=== PATIENT | male | born 1995 | race American Indian/Alaskan Native ===

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

== ENCOUNTER 2017-04-02 17:11 | Emergency (ER) | payer OTHER, SELFPAY ==
[2017-04-02 18:08] LABS: Anion Gap 17 mmol/L; BUN/Creatinine Ratio 13.75; Blood Urea Nitrogen 11 mg/dL (9-20); Calcium 9.2 mg/dL (8.4-10.2); Carbon Dioxide 24 mmol/L (22-30); Chloride 107.2 mmol/L (98-107); Glucose 100 mg/dL (75-100); Potassium 3.8 mmol/L (3.6-5.0); Sodium 144 mmol/L (137-145)
[2017-04-02 18:25] LABS: Urine Drugs of Abuse Note Disclamer
[2017-04-02 18:38] LABS: Basophils % (Auto) 0.4 % (0.0-1.8); Eosinophils % (Auto) 1.9 % (0.0-4.3); Hematocrit 45.9 % (35.5-45.6); Hemoglobin 14.9 gm/dl (11.8-15.2); Mean Corpuscular HGB Conc 33 % (32-34); Mean Corpuscular Hemoglobin 29 pg (28-32); Mean Corpuscular Volume 88 fl (84-94); Platelet Count 212 K/mm3 (140-440); Red Blood Count 5.23 M/mm3 (3.65-5.03); White Blood Count 6.4 K/mm3 (4.5-11.0)
[2017-04-02 18:44] LABS: Bilirubin,Urine NEG (Negative); Blood,Urine NEG (Negative); Ketones,Urine 20 mg/dL (Negative); Leukocyte Esterase,Urine NEG (Negative); Mucus,Urine FEW /HPF; Nitrite,Urine NEG (Negative); Protein,Urine <15 mg/dL mg/dL (Negative); Urobilinogen,Urine < 2.0 mg/dL (<2.0)
[2017-04-02] MEDS ORDERED: HALDOL ONE (21:17)
[2017-04-02] MEDS ORDERED: HALDOL IM ONE (21:21)
--- NOTE | 2017-04-02 21:44 | Emergency Department Report ---
HPI - General Chief Complaint: Psych Time Seen by Provider: 04/02/17 20:01 - HPI HPI: This is a 21-year-old Afro-Vincentian male with a past nuchal history of autism, ADHD who presents emergency Department with his legal guardian with the complaint that the patient is having some anger issues, has destroyed her property and is uncontrollable. She says that he has been back at her house for about 2 days now and he has destroyed every television in the house, multiple other pieces of furniture and just prior to presentation he came after her with TV tables. She says that he used to be controlled on Risperdal and his Divalprox but says that when he became 20 that they took away his Medicaid and unable to continue with the medications. She recently got him back on these medications through the [facility] but says that do not appear to be helping. She says that this is the fourth visit for similar behavioral disturbances. The patient is nonverbal at baseline. ED Past Medical Hx - Past Medical History Previous Medical History?: Yes Hx Psychiatric Treatment: Yes (anger outbursts) Additional medical history: Autism/ non verbal. Prematurity - Surgical History Past Surgical History?: Yes Additional Surgical History: multiple surgeries at - Social History Smoking Status: Never Smoker Substance Use Type: Prescribed - Medications Home Medications: Home Medications Medication Instructions Recorded Confirmed Last Taken Type Multivitamin [Multi-Vitamin Daily] 1 tab PO DAILY 12/30/13 12/30/13 12/30/13 History risperiDONE [RisperDAL] 2 mg PO DAILY 12/30/13 12/30/13 12/30/13 History Amoxicillin/K Clav Tab [Augmentin 1 tab PO BID #20 tablet 07/26/14 Unknown Rx 875MG TAB] Ibuprofen [Motrin 600 MG tab] 800 mg PO Q8H PRN #20 tablet 07/26/14 Unknown Rx Loratadine [Claritin] 10 mg PO DAILY #30 tablet 07/26/14 Unknown Rx Prednisone 20 mg PO DAILY #5 tablet 07/26/14 Unknown Rx diphenhydrAMINE [Benadryl CAP] 50 mg PO Q8HR PRN #30 capsule 11/10/16 Unknown Rx ED Review of Systems ROS: Stated complaint: MENTAL EVAL Other details as noted in HPI Comment: Unobtainable due to pts medical conditions Physical Exam - Physical Exam Vital Signs: Vital Signs 04/02/17 17:23 Temperature 98.8 F Pulse Rate 81 Respiratory 20 Rate Blood Pressure 128/74 O2 Sat by Pulse 94 Oximetry Physical Exam: GENERAL: The patient is well-developed well-nourished. HEENT: Normocephalic. Atraumatic. Extraocular motions are intact. Patient has moist mucous membranes. Pupils equal reactive to light bilaterally. NECK: Supple. Trachea is midline. CHEST/LUNGS: Clear to auscultation. There is no respiratory distress noted. HEART/CARDIOVASCULAR: Regular. There is no tachycardia. There is no gallop rub or murmur. ABDOMEN: Abdomen is soft, nontender. Patient has normal bowel sounds. There is no abdominal distention. SKIN: Skin is warm and dry. NEURO: Patient is awake but nonverbal. Not following any commands but this may be baseline. MUSCULOSKELETAL: There is no tenderness or deformity. There is no limitation range of motion. There is no evidence of acute injury. ED Course Vital Signs 04/02/17 17:23 Temperature 98.8 F Pulse Rate 81 Respiratory 20 Rate Blood Pressure 128/74 O2 Sat by Pulse 94 Oximetry ED Medical Decision Making - Lab Data Result diagrams: 04/02/17 17:37 04/02/17 17:37 - Medical Decision Making This is a 21-year-old male with a history of autism and some history of behavioral disturbances and what mom says is a history of ADHD who presents to the complaint of anger issues and behavioral disturbance and aggressive behavior. Mom/guardian says that the patient has been destroying everything in the house including every single television. This evening he destroyed a television and then started coming after her with TV cables. She felt threatened and called the police. She says that his medications were changed about one month ago and that when he is on his medications and stabilize that he is much better and she is able to redirect him or give him to take care of his activities of daily living. However at this point the guardian says she is fed up and will not bring him home in this state. The [facility] crisis team came out to evaluate the patient and his mother. She still is pushing for psychiatric placement and does not agree with their idea for aggressive in-home support. After my evaluation of the patient he did have some outbursts in the emergency department and became very agitated and tried to break down some of the doors in the psychiatric area. The patient was given some Haldol as he is usually on Risperdal and I thought this might bring him back to baseline. It seemed to work for a little while but that he became quite agitated again and required some Ativan. This appeared to help him relax more. The patient will be made a 1013 as he is unable to take care of his activities of daily living but more so because he appears to be a threat towards his guardian. The patient has a history of autism and some type of developmental delay and may always have trouble with ADLs. We will continue to evaluate this patient was in the emergency department and we will start with psychiatric evaluation and if necessary placement but there may be some further evaluation needed by the [facility] crisis team and/or social services director for future placement of this patient. Critical Care Time: No Critical care attestation.: If time is entered above; I have spent that time in minutes in the direct care of this critically ill patient, excluding procedure time. ED Disposition Clinical Impression: Behavioral disorder, Autism, Destructive behavior Disposition: [id number]/TX-[id number] PSY HOSP/PSY UNIT Is pt being admited?: No Condition: Stable Referrals: PRIMARY CARE [Primary Care Provider] - 3-5 Days Time of Disposition: 02:11
[2017-04-03] MEDS ORDERED: ATIVAN ONE
[2017-04-03] MEDS ORDERED: BENADRYL ONE (00:01)
[2017-04-03] MEDS ORDERED: ATIVAN IM ONE ×2 (00:03→17:08)
--- NOTE | 2017-04-03 16:33 | Consultation ---
History of Present Illness - Reason for Consult Consult date: 04/03/17 Reason for consult: psychiatric evaluation - Chief Complaint Chief complaint: "uh" This is a 21-year-old Afro-[place]ian male with a past medical history of autism and ADHD. He was seen in the ER for psychiatric evaluation. His adoptive mother/ grandmother provided collateral. She has attempted to take him to [facility] twice during the last week. Each time, he had a tantrum. When he returned to the home, he broke his cable box. This is the 8th one he has broken. His mother did not let him use her tv and he threw the cable box through it. She is also concerned about his recent behavior of appearing as thought he is interacting with something She says that he used to be controlled on Risperdal and his Divalprox but says that when he became 20 that they took away his Medicaid and unable to continue with the medications. She recently got him back on these medications through the [facility] but does not think they are helping. She remembered he responded better to Abilify instead of Risperdal. She says that this is the fourth visit for similar behavioral disturbances. The patient is nonverbal at baseline. He eats well and chooses food himself. He points to communicate. Medications and Allergies Allergies Allergy/AdvReac Type Severity Reaction Status Date / Time No Known Allergies Allergy Verified 11/06/16 18:33 Home Medications Medication Instructions Recorded Confirmed Last Taken Type Multivitamin [Multi-Vitamin Daily] 1 tab PO DAILY 12/30/13 12/30/13 12/30/13 History risperiDONE [RisperDAL] 2 mg PO DAILY 12/30/13 12/30/13 12/30/13 History Amoxicillin/K Clav Tab [Augmentin 1 tab PO BID #20 tablet 07/26/14 Unknown Rx 875MG TAB] Ibuprofen [Motrin 600 MG tab] 800 mg PO Q8H PRN #20 tablet 07/26/14 Unknown Rx Loratadine [Claritin] 10 mg PO DAILY #30 tablet 07/26/14 Unknown Rx Prednisone 20 mg PO DAILY #5 tablet 07/26/14 Unknown Rx diphenhydrAMINE [Benadryl CAP] 50 mg PO Q8HR PRN #30 capsule 11/10/16 Unknown Rx Past psychiatric history - Past Medical History Past Medical History: other (premature, less than 2lbs at according to his grandmother) Past Surgical History: Other (multiple surgeries as an infant. ) - past Psychiatric treatment and history Psych: Bipolar psychiatric treatment history: developmental delay - Social History Social history: lives with family (he has lived with his grandmother all of his life. His bioparents were unable to care for him.) Mental Status Exam - Vital signs Last Vital Signs Temp 98 F 04/02/17 20:30 Pulse 88 04/02/17 20:30 Resp 16 04/02/17 20:30 BP 127/82 04/02/17 20:30 Pulse Ox 100 04/02/17 20:30 - Exam Narrative exam: blood observed on his fingers. His grandmother reports his hand was closed in the door last night, on arrival to the ER. Appearance: sitting up in bed quietly. Speech: Nonverbal Minimal eye contact Unable to assess mood, affect, perception, thought process or content Orientation: person Results Result Diagrams: 04/02/17 17:37 04/02/17 17:37 Abnormal lab results 04/02/17 04/02/17 Range/Units 17:37 17:37 RBC 5.23 H (3.65-5.03) M/mm3 Hct 45.9 H (35.5-45.6) % [place] % (Auto) 11.7 H (0.0-7.3) % Chloride 107.2 H (98-107) mmol/L All other labs normal. Assessment and Plan Assessment and plan: Impression: Developmental delay Recent outbursts occurred following 2 trials at [facility], a significant change in routine. His guardian attributes some of his behavior to this change. He was doing well with behavior for the first month following the reinitiation of his medications. His guardian remembers abilify worked better than risperdal. Mood affective d/o unspecified possible psychotic symptoms Recommendations: Discussed with ER physician to order VPA level and add LFTs to labs. Last dose was 2 days ago. Depakote ER 500mg ordered for hs for mood stabilization Risperdal not ordered. Abilify 10mg daily ordered for mood/aggression Guardian in agreement of medication management
[2017-04-03] MEDS ORDERED: HALDOL IM ONE (17:08)
[2017-04-03] MEDS: ABILIFY PO SCH (21:52)
[2017-04-03 23:50] LABS: Alanine Aminotransferase 28 units/L (7-56); Albumin 4.1 g/dL (3.9-5); Albumin/Globulin Ratio 1.3 %; Alkaline Phosphatase 70 units/L (35-129); Total Protein 7.3 g/dL (6.3-8.2)
[2017-04-03 23:55] LABS: Bilirubin,Direct < 0.2 mg/dL (0-0.2); Bilirubin,Indirect 0.3 mg/dL
--- NOTE | 2017-04-04 11:43 | Progress Note ---
Subjective - Reason for Consult Consult date: 04/04/17 Reason for consult: mood lability Mental Status Exam - Vital signs Last Vital Signs Temp 98.0 F 04/03/17 22:00 Pulse 90 04/03/17 22:00 Resp 18 04/03/17 22:00 BP 126/63 04/03/17 22:00 Pulse Ox 98 04/03/17 22:00 Assessment and Plan On clinical examination, patient remains nonverbal and mute General Appearance: casually dressed, no acute distress Sensorium/Consciousness: alert and responding to external stimuli; clear Orientation: Unable to assess Eye Contact: limited Attitude / Behavior: Uncooperative Psychomotor & Musculoskeletal Activity: Increased PMA Mood: Unable to report Affect: Labile Speech / Language: Nonverbal Thought Processes: Unable to assess Thought Content: Unable to assess Perception: Appears to respond to mental stimuli Insight: Nonexistent Judgement: Impulsive Capacity for ADLs: Appears to be able to complete ADLs independently Plan: Continue Abilify and Depakote Await for placement at an appropriate facility that would be able to manage his developmental disorder
[2017-04-04] MEDS ORDERED: IMODIUM PO ONE (15:47)
[2017-04-04] MEDS: ABILIFY PO SCH (23:28)
--- NOTE | 2017-04-05 13:15 | Progress Note ---
Subjective - Reason for Consult Reason for consult: developmental delay and aggression Mental Status Exam - Vital signs Last Vital Signs Temp 98.8 F 04/05/17 08:35 Pulse 83 04/05/17 08:35 Resp 16 04/05/17 08:35 BP 124/83 04/05/17 08:35 Pulse Ox 100 04/05/17 08:35 Assessment and Plan On clinical examination, patient remains nonverbal and mute. Per clinical staff report, patient has not been agitated or aggressive in the ER. No further information is available regarding his placement. General Appearance: casually dressed, no acute distress Sensorium/Consciousness: alert and responding to external stimuli; clear Orientation: Unable to assess Eye Contact: limited Attitude / Behavior: Uncooperative Psychomotor & Musculoskeletal Activity: Increased PMA Mood: Unable to report Affect: Labile Speech / Language: Nonverbal Thought Processes: Unable to assess Thought Content: Unable to assess Perception: Appears to respond to mental stimuli Insight: Nonexistent Judgement: Impulsive Capacity for ADLs: Appears to be able to complete ADLs independently Plan: Continue Abilify and Depakote Await for placement at an appropriate facility that would be able to manage his developmental disorder
[2017-04-05] MEDS: ABILIFY PO SCH (22:10)
[2017-04-06 09:24] VITALS: BP 114/75
--- NOTE | 2017-04-06 12:00 | Emergency Department Report ---
Blank Doc - Documentation Documentation: Patient has been reassessed by psychiatry. 1013 has been rescinded by psychiatry. Patient is to be discharged home per psychiatric recommendation to follow up with his outpatient psychiatrist.
--- NOTE | 2017-04-06 13:48 | Progress Note ---
Subjective - Reason for Consult Reason for consult: evaluate to rescind 1013 Mental Status Exam - Vital signs Last Vital Signs Temp 98.9 F 04/05/17 22:00 Pulse 65 04/06/17 09:22 Resp 18 04/06/17 09:22 BP 114/75 04/06/17 09:22 Pulse Ox 96 04/05/17 22:00 Assessment and Plan On clinical examination, patient remains nonverbal and mute. Per clinical staff report, patient has not been agitated or aggressive in the ER. Today I spoke with the patient's mother was at bedside. Patient has been off his medications since June. Since being back on his Abilify and Depakote while in the hospital, patient has had a more stable mood and has not displayed any aggressive and agitated behaviors. At the current time patient is no longer an imminent risk of harm to self or others. Although he is unable to take care of his ADLs, this is related to a neuro developmental and even irreversible process. Consequently, he does not meet criteria for continued involuntary psychiatric hospitalization as the neurodevelopmental aspect of his presentation is something that is irreversible, unlike a mood disorder, which is being treated by the Abilify and Depakote. General Appearance: casually dressed, no acute distress Sensorium/Consciousness: alert and responding to external stimuli; clear Orientation: Unable to assess Eye Contact: limited Attitude / Behavior: Uncooperative Psychomotor & Musculoskeletal Activity: Increased PMA Mood: Unable to report Affect: Labile Speech / Language: Nonverbal Thought Processes: Unable to assess Thought Content: Unable to assess Perception: Appears to respond to mental stimuli Insight: Nonexistent Judgement: Impulsive Capacity for ADLs: Appears to be able to complete ADLs independently Plan: Rescind 1013 Continue Abilify and Depakote as scheduled upon discharge Patient will follow up with outpatient psychiatrist
== END 2017-04-06 12:22 ==
LOC: EEVIPCON 17:11 → ED 17:11
DX: F91.8 Other conduct disorders (principal); F84.0 Autistic disorder; F90.9 Attention-deficit hyperactivity disorder, unspecified type
CPT/HCPCS: 36415; 80048; 80074; 80164; 80307; 81001; 85025; 96372; 99284; G0480; J1630; J2060; 80320; J1200

== ENCOUNTER 2018-06-19 22:01 | Emergency (ER) | payer SELFPAY ==
[2018-06-19 22:34] VITALS: BP 127/76
[2018-06-19 22:58] LABS: Basophils % (Auto) 0.5 % (0.0-1.8); Eosinophils # (Auto) 0.1 K/mm3 (0.0-0.4); Eosinophils % (Auto) 2.6 % (0.0-4.3); Hematocrit 47.3 % (35.5-45.6); Hemoglobin 16.3 gm/dl (11.8-15.2); Lymphocytes # (Auto) 2.6 K/mm3 (1.2-5.4); Lymphocytes % (Auto) 46.1 % (13.4-35.0); Mean Corpuscular HGB Conc 34 % (32-34); Mean Corpuscular Hemoglobin 31 pg (28-32); Mean Corpuscular Volume 91 fl (84-94); Monocytes # (Auto) 0.6 K/mm3 (0.0-0.8); Platelet Count 161 K/mm3 (140-440); Red Blood Count 5.22 M/mm3 (3.65-5.03); Red Cell Distribution Width 13.7 % (13.2-15.2)
[2018-06-19 23:54] LABS: Bilirubin,Urine NEG (Negative); Blood,Urine NEG (Negative); Color,Urine Yellow (Yellow); Mucus,Urine FEW /HPF; Protein,Urine <15 mg/dL mg/dL (Negative)
[2018-06-19 23:58] LABS: Amphetamine Screen,Urine PRESUMPTIVE NEGATIVE; Benzodiazepines Screen,Urine PRESUMPTIVE NEGATIVE; Cannabinoid Screen,Urine PRESUMPTIVE NEGATIVE; Cocaine Screen,Urine PRESUMPTIVE NEGATIVE; Methadone Screen,Urine PRESUMPTIVE NEGATIVE; Opiate Screen,Urine PRESUMPTIVE NEGATIVE
--- NOTE | 2018-06-20 00:01 | Emergency Department Report ---
ED Psych HPI - General Chief Complaint: Psych Stated Complaint: MH/EVAL Time Seen by Provider: 06/19/18 23:48 Source: patient Mode of arrival: Ambulatory - History of Present Illness Initial Comments: Patient is 22 years old male with history of autism and ADHD. Patient brought to the ER by police department after his adopted mother called and he stated that he was watching TV and all of a sudden he became very aggressive and he broke a TV and damage his room. Patient has similar episodes before for which he was evaluated here in the ER. During examination patient is calm and mute. Mother stated that his been taking Depakote and Abilify. Complaint: altered mental status - Related Data Home Medications Medication Instructions Recorded Confirmed Last Taken ARIPiprazole [Abilify TAB] 20 mg PO HS 06/19/18 06/19/18 13:00 Divalproex ER [Depakote ER] 500 mg PO BID 06/19/18 06/19/18 06/19/18 13:00 Allergies Allergy/AdvReac Type Severity Reaction Status Date / Time No Known Allergies Allergy Verified 11/06/16 18:33 ED Review of Systems ROS: Stated complaint: MH/EVAL Other details as noted in HPI Comment: Unobtainable due to pts medical conditions ED Past Medical Hx - Past Medical History Previous Medical History?: Yes Hx Psychiatric Treatment: Yes (anger outbursts) Additional medical history: Autism/ non verbal. Prematurity - Surgical History Past Surgical History?: Yes Additional Surgical History: multiple surgeries at - Social History Smoking Status: Never Smoker Substance Use Type: Prescribed - Medications Home Medications: Home Medications Medication Instructions Recorded Confirmed Last Taken Type ARIPiprazole [Abilify TAB] 20 mg PO HS 06/19/18 06/19/18 13:00 History Divalproex ER [Depakote ER] 500 mg PO BID 06/19/18 06/19/18 06/19/18 13:00 History ED Physical Exam - General Limitations: Language Barrier General appearance: alert, in no apparent distress, anxious - Head Head exam: Present: atraumatic, normocephalic, normal inspection - ENT ENT exam: Present: normal exam, normal orophraynx - Neck Neck exam: Present: normal inspection, full ROM. Absent: tenderness, meningismus - Respiratory Respiratory exam: Present: normal lung sounds bilaterally - Cardiovascular Cardiovascular Exam: Present: regular rate, normal rhythm, normal heart sounds - GI/Abdominal GI/Abdominal exam: Present: soft, normal bowel sounds. Absent: distended, tenderness, guarding, rebound, rigid, organomegaly, mass, bruit, pulsatile mass - Extremities Exam Extremities exam: Present: normal inspection, full ROM, normal capillary refill. Absent: pedal edema, calf tenderness - Back Exam Back exam: Present: normal inspection, full ROM - Neurological Exam Neurological exam: Present: alert, oriented X3, CN II-XII intact, normal gait, reflexes normal - Skin Skin exam: Present: warm, intact, normal color ED Course Vital Signs 06/19/18 22:25 Temperature 99 F Pulse Rate 69 Respiratory 14 Rate Blood Pressure 127/76 Blood Pressure 127/76 [Left] O2 Sat by Pulse 98 Oximetry ED Medical Decision Making - Lab Data Result diagrams: 06/19/18 22:49 06/19/18 22:49 Critical care attestation.: If time is entered above; I have spent that time in minutes in the direct care of this critically ill patient, excluding procedure time. ED Disposition Clinical Impression: Aggressive behavior, Autism Disposition: Z-07 ELOPED Is pt being admited?: No Condition: Stable Referrals: PRIMARY CARE, [Primary Care Provider] - 3-5 Days
[2018-06-20 00:49] LABS: BUN/Creatinine Ratio 14; Blood Urea Nitrogen 13 mg/dL (9-20); Calcium 9.9 mg/dL (8.4-10.2); Hemolysis Index 14
== END 2018-06-20 10:57 | disposition left against medical advice (07) ==
LOC: ED 22:01
DX: F84.0 Autistic disorder (principal); F91.8 Other conduct disorders; Z79.899 Other long term (current) drug therapy
CPT/HCPCS: 36415; 80048; 80307; 81001; 85025; 99284; G0480; 80320

== ENCOUNTER 2018-07-21 11:10 | Emergency (ER) | payer SELFPAY ==
[2018-07-21 11:33] VITALS: BP 122/78
--- NOTE | 2018-07-21 11:43 | Emergency Department Report ---
HPI - General Chief Complaint: Medical Clearance Time Seen by Provider: 07/21/18 11:26 - HPI HPI: 23-year-old -[place] male, who has a past medical history of autism and ADHD, presents to the emergency department via EMS from school after he had some aggressive behavior. Apparently the patient's adoptive parent is on the way. The patient is known to both myself and his department. He is nonverbal at baseline but does have some history of aggressive behavior. The patient was here at the beginning of last month with some similar issues regarding his aggression and destroying his room and some of his parents home. At the time, they were looking into a long-term placement. The patient is a poor historian secondary to his medical conditions. ED Past Medical Hx - Past Medical History Previous Medical History?: Yes Hx Psychiatric Treatment: Yes (autism; anger outbursts) Additional medical history: Autism/ non verbal. Prematurity - Surgical History Past Surgical History?: Yes Additional Surgical History: multiple surgeries at - Social History Smoking Status: Never Smoker Substance Use Type: None - Medications Home Medications: Home Medications Medication Instructions Recorded Confirmed Last Taken Type ARIPiprazole [Abilify TAB] 20 mg PO HS 06/19/18 06/19/18 13:00 History Divalproex ER [Depakote ER] 500 mg PO BID 06/19/18 06/19/18 06/19/18 13:00 History ED Review of Systems ROS: Stated complaint: ACUTE AGITATION Other details as noted in HPI Comment: Unobtainable due to pts medical conditions Physical Exam - Physical Exam Vital Signs: Vital Signs 07/21/18 11:19 Temperature 98.5 F Pulse Rate 93 H Respiratory 24 Rate Blood Pressure 122/78 [Right] O2 Sat by Pulse 96 Oximetry Physical Exam: GENERAL: Patient is awake and in no acute distress. HENT: Normocephalic. Atraumatic. Patient has moist mucous membranes. EYES: Extraocular motions are intact. Pupils equal reactive to light bilaterally. NECK: Supple. Trachea is midline. CHEST/LUNGS: Clear to auscultation. There is no respiratory distress noted. HEART/CARDIOVASCULAR: Regular. There is no tachycardia. There is no murmur. ABDOMEN: Abdomen is soft, nontender. Patient has normal bowel sounds. There is no abdominal distention. SKIN: Skin is warm and dry. NEURO: The patient is awake. He is nonverbal at baseline. He follows some commands. No gait abnormalities. MUSCULOSKELETAL: There is no tenderness or deformity. There is no limitation range of motion. There is no evidence of acute injury. ED Course Vital Signs 07/21/18 11:19 Temperature 98.5 F Pulse Rate 93 H Respiratory 24 Rate Blood Pressure 122/78 [Right] O2 Sat by Pulse 96 Oximetry ED Medical Decision Making - Lab Data Result diagrams: 07/21/18 11:43 07/21/18 11:43 - Medical Decision Making This patient came to the emergency department from school after he was acting aggressive towards other people. Apparently, per his guardian, the patient received IM Haldol and was struggling against the security officers there. However since the patient has been in the emergency department he has been calm and at his baseline and has shown no aggression towards myself or any staff members. His labs have been unremarkable. He was seen by the psych assessment team who agrees that the patient does not appear to be a candidate for inpatient psychiatric treatment or require a 1013 as he has been acting appropriately. He was seen by the case management team who contacted the guardian to come and pick him up. I spoke with his adopted mother, his guardian , who says that she has been having difficulty with him at home as he has been violent towards her house and sometimes herself. Last time they were here she was working on getting him placed into a long-term. At first she told me that she was called by someone at the long-term and told that the patient was accepted and that they would be picking him up last weekend. She was very frustrated as she says that this obviously did not happen. However while the patient was in the emergency department, the guardian was able to get in touch with the long-term and was told that his acceptance would be in the middle of July. Patient will be discharged back with his mother/guardian. Since the Haldol appeared to work for him, I suggested that they go back and see the psychiatrist to see if there are any additions or changes to his medication that may be helpful. Obviously I do not want her to be harmed, so if there is any signs of further agitation or aggression towards her, she has been told to contact 911 and the mobile crisis unit and we are always open and happy to reevaluate him. Critical Care Time: No Critical care attestation.: If time is entered above; I have spent that time in minutes in the direct care of this critically ill patient, excluding procedure time. ED Disposition Clinical Impression: School conflict, Aggressive behavior, Autism Disposition: DC-01 TO HOME OR SELFCARE Is pt being admited?: No Condition: Stable Instructions: Conduct Disorder (ED), Autism (ED) Additional Instructions: Please follow up with your psychiatrist and primary care physicians in the next few days. Please stay in contact with the long-term. Return to the emergency Department with any worsening of your symptoms or any acute distress. If he becomes aggressive or violent at home, called the mobile crisis number and 911. Referrals: PRIMARY CARE, [Primary Care Provider] - [facility] Time of Disposition: 17:24
[2018-07-21 12:00] LABS: Basophils % (Auto) 0.6 % (0.0-1.8); Eosinophils % (Auto) 0.6 % (0.0-4.3); Hematocrit 47.5 % (35.5-45.6); Hemoglobin 15.6 gm/dl (11.8-15.2); Lymphocytes # (Auto) 1.2 K/mm3 (1.2-5.4); Lymphocytes % (Auto) 25.4 % (13.4-35.0); Mean Corpuscular HGB Conc 33 % (32-34); Mean Corpuscular Hemoglobin 30 pg (28-32); Mean Corpuscular Volume 92 fl (84-94); Monocytes # (Auto) 0.4 K/mm3 (0.0-0.8); Monocytes % (Auto) 7.5 % (0.0-7.3); Platelet Count 159 K/mm3 (140-440); Red Blood Count 5.17 M/mm3 (3.65-5.03); Red Cell Distribution Width 13.8 % (13.2-15.2)
[2018-07-21 12:14] LABS: BUN/Creatinine Ratio 23; Blood Urea Nitrogen 21 mg/dL (9-20); Calcium 9.4 mg/dL (8.4-10.2); Hemolysis Index 20
--- NOTE | 2018-07-21 17:22 | Consultation ---
History of Present Illness - Reason for Consult Consult date: 07/21/18 Reason for consult: Initial Psychiatric Evaluation - Chief Complaint Chief complaint: Patient does not communicate. Patient is nonverbal. - History of Present Psychiatric Illness Patient is a 23-year-old -Hung[place] male who presents to the emergency department via EMS from school after he had some aggressive behavior. He has a PPHx of Autism and ADHD. Awaiting adoptive parent arrival. The patient is known to provider. Today patient presents calm and cooperative. He is nonverbal at baseline but does have some history of aggressive behavior. The patient was here at the beginning of last month with some similar issues regarding his aggression and destroying his room and some of his parents home. At the time, they were looking into a assisted placement. No agitation noted. Per provider's previous assessment on 06/22/2018. Information collected by adopted parent: Current Psychiatric Medications: Depakote 500mg po BID, Abilify 20mg po QHS Past Psychiatric History: Patient psychiatric diagnosis unknown; no previous inpatient psychiatric hospitalizations; outpatient psychiatrist Dr. Quan located in [place], [place]; no previous suicide attempts Past Psychiatric Medication Trials: Risperdal- " not really effective." History of Trauma/Abuse: Per mother patient has not been sexually, physically, or mentally abused. Drug/Alcohol Abuse: Per mother patient does not have a drug/alcohol history. Social History: Currently patient att[facility] [employer]- highest level of education; lives with adopted mother ; single; limited support system- [facility] , Rutmaribel Ott, . Family History: Father- " he's the exact same as him" ( per adopted parent). Medications and Allergies Allergies Allergy/AdvReac Type Severity Reaction Status Date / Time No Known Allergies Allergy Verified 11/06/16 18:33 Home Medications Medication Instructions Recorded Confirmed Last Taken Type ARIPiprazole [Abilify TAB] 20 mg PO HS 06/19/18 06/19/18 13:00 History Divalproex ER [Depakote ER] 500 mg PO BID 06/19/18 06/19/18 06/19/18 13:00 History Mental Status Exam - Vital signs Last Vital Signs Temp 98.5 F 07/21/18 11:19 Pulse 93 H 07/21/18 11:19 Resp 24 07/21/18 12:43 BP 122/78 07/21/18 11:19 Pulse Ox 98 07/21/18 12:43 - Exam Narrative exam: Provider unable to assess patient's mental status due to limited cognition. Results Result Diagrams: 07/21/18 11:43 07/21/18 11:43 Abnormal lab results 07/21/18 07/21/18 07/21/18 Range/Units 11:43 11:43 11:43 RBC (3.65-5.03) M/mm3 Hgb (11.8-15.2) gm/dl Hct (35.5-45.6) % [place] % (Auto) (0.0-7.3) % BUN 21 H (9-20) mg/dL Glucose 110 H (75-100) mg/dL Salicylates < 0.3 L (2.8-20.0) mg/dL Acetaminophen < 5.0 L (10.0-30.0) ug/mL 07/21/18 Range/Units 11:43 RBC 5.17 H (3.65-5.03) M/mm3 Hgb 15.6 H (11.8-15.2) gm/dl Hct 47.5 H (35.5-45.6) % [place] % (Auto) 7.5 H (0.0-7.3) % BUN (9-20) mg/dL Glucose (75-100) mg/dL Salicylates (2.8-20.0) mg/dL Acetaminophen (10.0-30.0) ug/mL All other labs normal. Assessment and Plan Assessment and plan: Impression: PPHx unknown. Mood Disorder Unspecified. Today patient is calm and cooperative. Patient is nonverbal. No agitation or aggressive behaviors noted. No suicidal or homicidal gestures noted. DDx: r/o Bipolar Disorder with psychotic features r/o Schizoaffective Disorder, Bipolar Type Recommendation/Plan: 1. Will reassess in 24 hours to determine proper disposition. 2. Will obtain Depakote level. 3. After the collection of the Depakote level. Provider will restart/ adjust medication accordingly . Patient will continue Depakote 500mg po BID mood and Abilify mood/psychosis. Attempted to discuss the metabolic side effects of both Depakote and Abilify. 4. Mother's contact information is [phone]. Disposition: Psychiatry will provide medication management. Social Work has been consulted to assist with placement to a assisted. Discussed with Dr. Mathew Neves
== END 2018-07-21 17:32 | disposition home or self-care (01) ==
LOC: ED 11:10
DX: F91.8 Other conduct disorders (principal); F84.0 Autistic disorder; F90.9 Attention-deficit hyperactivity disorder, unspecified type
CPT/HCPCS: 36415; 80048; 85025; 99284; G0480; 80320

== ENCOUNTER 2020-08-16 13:45 | Emergency (ER) | payer MEDICAID ==
--- NOTE | 2020-08-16 17:44 | Emergency Department Report ---
ED Laceration HPI - HPI Time Seen by Provider: 08/16/20 17:27 Other History: This is a 25-year-old male who presents the emergency department with his business applications analyst who reports that the patient became agitated this morning when he was told he could not use his gadget because the power was out. He p unched a glass piece of furniture causing a laceration to his right wrist. He has a history of severe autism and is nonverbal. Tetanus vaccine is up-to-date ED Review of Systems ROS: Stated complaint: Other details as noted in HPI Comment: Unobtainable due to pts medical conditions ED Past Medical Hx - Past Medical History Hx Psychiatric Treatment: Yes (autism; anger outbursts) Additional medical history: Autism/ non verbal. Prematurity - Surgical History Additional Surgical History: multiple surgeries at - Social History Smoking Status: Never Smoker Substance Use Type: None - Medications Home Medications: Home Medications Medication Instructions Recorded Confirmed Last Taken Type ARIPiprazole [Abilify TAB] 20 mg PO HS 06/19/18 06/19/18 13:00 History Divalproex ER [Depakote ER] 500 mg PO BID 06/19/18 06/19/18 06/19/18 13:00 History cephALEXin [Keflex] 500 mg PO Q6HR #40 capsule 08/16/20 Unknown Rx Laceration Physical Exam - Exam General: Vital signs noted. No distress. Alert and acting appropriately. Full Body Front + Back: 1 - There is a 4 cm flap laceration to the anterior right wrist. There is no involvement of the fascia. There is full flexion extension of the wrist. There is full flexion and extension of the DIP, PIP and MCP joint of all fingers. There is normal distal sensation capillary refill. Laceration Exam: Yes Normal Distal CMS, No Foreign Body, No Exposed Tendon, Vessel, or Nerve, No Tendon Injury - Laceration /Wound Repair Right Wrist Wound Location: upper extremity (Right wrist) Wound Length (cm): 5 Wound's Depth, Shape: flap Wound Explored: clean Irrigated w/ Saline (ccs): 250 Betadine Prep?: Yes Anesthesia: 1% Lidocaine Volume Anesthetic (ccs): 10 Wound Debrided: minimal Wound Repaired With: sutures Suture Size/Type: 3:0, nylon Number of Sutures: 10 Layer Closure?: Yes Deep Layer Suture Size/Type: 4:0 (Vicryl) Number Deep Layer Sutures: 1 Sterile Dressing Applied?: Yes Progress: Patient tolerated the procedure well, there is less than 5 mL of blood loss. ED Medical Decision Making - Medical Decision Making Laceration was repaired without complication. Patient tolerated the procedure well. Caregiver was educated about the wound care at home and signs of infection including redness swelling or pus drainage. I will send the patient home with a short course of antibiotics due to the depth of the wound. Tetanus is already updated. There does not appear to be any injury to any tendons, muscles or any other deep structures. There was a small area of pulsatile bleeding which was tied off with Vicryl suture. Critical care attestation.: If time is entered above; I have spent that time in minutes in the direct care of this critically ill patient, excluding procedure time. ED Disposition Clinical Impression: Laceration of right wrist Qualifiers: Encounter type: initial encounter Qualified Code(s): S61.511A - Laceration without foreign body of right wrist, initial encounter Disposition: DC-01 TO HOME OR SELFCARE Is pt being admited?: No Condition: Stable Instructions: Suture Care (ED) Prescriptions: cephALEXin [Keflex] 500 mg PO Q6HR #40 capsule Referrals: KENIA MULLINS MD [Primary Care Provider] - 7-10 days (for wound check and suture removal ) Time of Disposition: 18:20
== END 2020-08-16 18:56 | disposition home or self-care (01) ==
LOC: ED 13:45
DX: S61.511A Laceration without foreign body of right wrist, initial encounter (principal); F84.0 Autistic disorder; Z79.899 Other long term (current) drug therapy; W22.8XXA Striking against or struck by other objects, initial encounter; Y93.89 Activity, other specified; Y92.89 Other specified places as the place of occurrence of the external cause; Y99.8 Other external cause status
CPT/HCPCS: 99281

== ENCOUNTER 2020-08-24 10:39 | Emergency (ER) | payer MEDICAID ==
--- NOTE | 2020-08-24 11:00 | Emergency Department Report ---
ED General Adult HPI - General Stated complaint: SUTURE REMOVAL Time Seen by Provider: 08/24/20 10:56 - History of Present Illness Initial comments: Patient presents with his caregiver for suture removal today. Sutures were placed in the right wrist on 08/16/2020 here in the ED. Patient's caregiver states patient has been compliant with his Keflex 4 times a day. She denies any purulent drainage, fever/chills/sweats, or complaints of pain. - Related Data Home Medications Medication Instructions Recorded Confirmed Last Taken ARIPiprazole [Abilify TAB] 20 mg PO HS 06/19/18 06/19/18 13:00 Divalproex ER [Depakote ER] 500 mg PO BID 06/19/18 06/19/18 06/19/18 13:00 Previous Rx's Medication Instructions Recorded Last Taken Type cephALEXin [Keflex] 500 mg PO Q6HR #40 capsule 08/16/20 Unknown Rx Mupirocin [Bactroban 2% OINT] 1 applic TP TID 7 Days #1 tube 08/24/20 Unknown Rx Allergies Allergy/AdvReac Type Severity Reaction Status Date / Time No Known Allergies Allergy Verified 11/06/16 18:33 ED Review of Systems ROS: Stated complaint: SUTURE REMOVAL Other details as noted in HPI Comment: Unobtainable due to pts medical conditions Constitutional: denies: chills, diaphoresis, fever, malaise, weakness Gastrointestinal: denies: vomiting Skin: denies: change in color ED Past Medical Hx - Past Medical History Hx Psychiatric Treatment: Yes (autism; anger outbursts) Additional medical history: Autism/ non verbal. Prematurity - Surgical History Additional Surgical History: multiple surgeries at - Social History Smoking Status: Never Smoker Substance Use Type: None - Medications Home Medications: Home Medications Medication Instructions Recorded Confirmed Last Taken Type ARIPiprazole [Abilify TAB] 20 mg PO HS 06/19/18 06/19/18 13:00 History Divalproex ER [Depakote ER] 500 mg PO BID 06/19/18 06/19/18 06/19/18 13:00 History cephALEXin [Keflex] 500 mg PO Q6HR #40 capsule 08/16/20 Unknown Rx Mupirocin [Bactroban 2% OINT] 1 applic TP TID 7 Days #1 tube 08/24/20 Unknown Rx ED Physical Exam - General General appearance: alert, in no apparent distress - Head Head exam: Present: atraumatic, normocephalic - Eye Eye exam: Absent: scleral icterus - Respiratory Respiratory exam: Absent: respiratory distress - Cardiovascular Cardiovascular Exam: Present: regular rate, normal rhythm - Extremities Exam Extremities exam: Present: full ROM - Neurological Exam Neurological exam: Present: alert - Psychiatric Psychiatric exam: Present: normal affect, normal mood - Skin Skin exam: Present: warm, dry, other (Healing right anterior wrist laceration noted with [address]; there is mild wound dehiscence noted without purulent drainage; there is also mild erythema without swelling or cellulitic changes noted) ED Course Vital Signs 08/24/20 10:57 Temperature 97.9 F Pulse Rate 63 Respiratory 18 Rate Blood Pressure 102/66 [Left] O2 Sat by Pulse 100 Oximetry ED Medical Decision Making - Medical Decision Making Patient presents with his caregiver for suture removal today. Sutures were placed in the right wrist on 08/16/2020 here in the ED. Patient's caregiver states patient has been compliant with his Keflex 4 times a day. She denies any purulent drainage, fever/chills/sweats, or complaints of pain. On exam, 5 out of 10 sutures are missing in the wound does not appear to be fully healed. There is also mild erythema without purulent drainage noted. Patient to continue on Keflex. Prescription for mupirocin given. Patient's caregiver instructed to return to ED in 4 days for suture removal. Signs and symptoms of infection were discussed in detail with caregiver who verbalized understanding. His vitals are normal and he is well-appearing stable for discharge home. Critical care attestation.: If time is entered above; I have spent that time in minutes in the direct care of this critically ill patient, excluding procedure time. ED Disposition Clinical Impression: Visit for suture removal Disposition: DC- TO HOME OR SELFCARE Is pt being admited?: No Condition: Stable Instructions: Wound Care, Adult Additional Instructions: Return to the emergency department in 4 days on 08/28/2020 for suture removal Prescriptions: Mupirocin [Bactroban 2% OINT] 1 applic TP TID 7 Days #1 tube Referrals: [facility] [Provider Group] - 3-5 Days
[2020-08-24 11:02] VITALS: BP 102/66
== END 2020-08-24 11:15 | disposition home or self-care (01) ==
LOC: ED 10:39
DX: S61.511D Laceration without foreign body of right wrist, subsequent encounter (principal); Z48.02 Encounter for removal of sutures; Z98.890 Other specified postprocedural states; Z79.899 Other long term (current) drug therapy; X58.XXXD Exposure to other specified factors, subsequent encounter
CPT/HCPCS: 99282

== ENCOUNTER 2020-08-28 10:36 | Emergency (ER) | payer MEDICAID ==
[2020-08-28 10:45] VITALS: BP 118/79
--- NOTE | 2020-08-28 11:14 | Emergency Department Report ---
Suture/Staple Removal - [facility] Chief Complaint: Laceration/Recheck/Suture Stated Complaint: SUTURE REMOVAL Time Seen by Provider: 08/28/20 11:12 When Sutures or Wesley Placed: 11-14 Days Ago Wound Location: Right wrist lower laceration cut on 16 August was seen here about 4 days a ED Review of Systems ROS: Stated complaint: SUTURE REMOVAL Other details as noted in HPI Comment: All other systems reviewed and negative ED Past Medical Hx - Past Medical History Previous Medical History?: Yes Hx Psychiatric Treatment: Yes (autism; anger outbursts) Additional medical history: Autism/ non verbal. Prematurity - Surgical History Past Surgical History?: Yes Additional Surgical History: multiple surgeries at - Social History Smoking Status: Never Smoker Substance Use Type: None - Medications Home Medications: Home Medications Medication Instructions Recorded Confirmed Last Taken Type ARIPiprazole [Abilify TAB] 20 mg PO HS 06/19/18 06/19/18 13:00 History Divalproex ER [Depakote ER] 500 mg PO BID 06/19/18 06/19/18 06/19/18 13:00 History cephALEXin [Keflex] 500 mg PO Q6HR #40 capsule 08/16/20 Unknown Rx Mupirocin [Bactroban 2% OINT] 1 applic TP TID 7 Days #1 tube 08/24/20 Unknown Rx Suture Removal Exam - Exam General: Vital signs noted. No distress. Alert and acting appropriately. Wound: No Pathologic Erythema, No Tenderness, No Drainage, No Pus, No Wound Dehiscence Other Systems: All other systems reviewed and are unremarkable. ED Course Vital Signs 08/28/20 10:38 Temperature 98.2 F Pulse Rate 78 Blood Pressure 118/79 [Right] O2 Sat by Pulse 98 Oximetry Critical care attestation.: If time is entered above; I have spent that time in minutes in the direct care of this critically ill patient, excluding procedure time. ED Disposition Clinical Impression: Visit for suture removal Disposition: DC-01 TO HOME OR SELFCARE Is pt being admited?: No Does the pt Need Aspirin: No Condition: Stable Instructions: Wound Closure Removal, Care After Referrals: [facility] [Provider Group] - 3-5 Days
== END 2020-08-28 11:22 | disposition home or self-care (01) ==
LOC: ED 10:36
DX: S61.511D Laceration without foreign body of right wrist, subsequent encounter (principal); Z98.890 Other specified postprocedural states; Z79.899 Other long term (current) drug therapy; X58.XXXD Exposure to other specified factors, subsequent encounter